=== PATIENT | female | born 1980 | race African-American/Black ===

== ENCOUNTER 2017-03-18 23:56 | Emergency (ER) | payer BC ==
[2017-03-19 00:25] LABS: URINE HCG POC HCG NEGATIVE (Negative)
[2017-03-19 00:53] LABS: ADD MAN DIFF? NO
[2017-03-19 00:57] LABS: BASO # 0.1 x10^3/uL (0.0-0.2); BASO % 1 % (0-3); EOS # 0.1 x10^3/uL (0.0-0.7); EOS % 2 % (0-3); HEMATOCRIT 28.7 % (36.0-47.0); HEMOGLOBIN 9.1 g/dL (12.0-15.5); LYMPH # 1.4 x10^3/uL (1.0-4.8); LYMPH % 22 % (24-48); MEAN CORPUSCULAR HEMOGLOBIN 23 pg (25-35); MEAN CORPUSCULAR HGB CONC 32 g/dL (31-37); MEAN CORPUSCULAR VOLUME 74 fL (79-100); MONO # 0.4 x10^3/uL (0.0-1.1); MONO % 7 % (0-9); NEUT # 4.4 x10^3uL (1.8-7.7); NEUT % 69 % (31-73); PLATELET COUNT 316 x10^3/uL (140-400); RED BLOOD COUNT 3.91 x10^6/uL (3.50-5.40); RED CELL DISTRIBUTION WIDTH 17.8 % (11.5-14.5); WHITE BLOOD COUNT 6.4 x10^3/uL (4.0-11.0)
[2017-03-19 00:58] LABS: BILIRUBIN,URINE NEGATIVE (NEG); CLARITY,URINE CLEAR; COLOR,URINE YELLOW; GLUCOSE,URINE NEGATIVE (NEG); NITRITE,URINE NEGATIVE (NEG); PH,URINE 7.5; PROTEIN,URINE NEGATIVE (NEG-TRACE); UROBILINOGEN,URINE 0.2 mg/dL (0.2 mg/dL)
[2017-03-19] MEDS ORDERED: CONTRAST GIVEN MC (01:00)
[2017-03-19] MEDS: IV NORMAL SALINE 1000ML BAG 1,000 ML IV (01:00)
[2017-03-19] MEDS: KETOROLAC 30 MG/ML INJ. IV (01:01)
[2017-03-19 01:04] LABS: BACTERIA,URINE FEW /HPF (0-FEW); RBC,URINE OCC /HPF (0-2)
[2017-03-19 01:05] LABS: SQUAMOUS EPITHELIAL CELL,UR FEW /LPF
[2017-03-19 01:09] LABS: ANION GAP 11 (6-14); BLOOD UREA NITROGEN 11 mg/dL (7-20); BUN/CREATININE RATIO 16 (6-20); CARBON DIOXIDE 26 mmol/L (21-32); CHLORIDE 104 mmol/L (98-107); CREATININE 0.7 mg/dL (0.6-1.0); GFR 113.3; GLUCOSE 99 mg/dL (70-99); POTASSIUM 3.5 mmol/L (3.5-5.1); SODIUM 141 mmol/L (136-145)
[2017-03-19 01:14] LABS: ALBUMIN/GLOBULIN RATIO 0.9 (1.0-1.7); ALK PHOS 98 U/L (46-116); ALT (SGPT) 14 U/L (14-59); AST (SGOT) 22 U/L (15-37); LIPASE 538 U/L (73-393); TOTAL BILIRUBIN 0.1 mg/dL (0.2-1.0); TOTAL PROTEIN 8.4 g/dL (6.4-8.2)
[2017-03-19] MEDS: IOHEXOL 300 MG/ML 100ML VIAL. IV (01:33)
[2017-03-19] MEDS: HYOSCYAMINE 0.125 MG TAB.RAPDIS PO (03:53)
[2017-03-19] MEDS: metroNIDAZOLE 500 MG TABLET PO (03:53)
[2017-03-19] MEDS: CIPROFLOXACIN HCL 250 MG TABLET. PO (03:54)
== END 2017-03-19 04:20 | disposition home or self-care (01) ==
LOC: ER 23:56
DX: K52.9 Noninfective gastroenteritis and colitis, unspecified (principal); R74.8 Abnormal levels of other serum enzymes; I10 Essential (primary) hypertension
CPT/HCPCS: 36415; 74177; 80053; 81001; 81025; 83690; 85025; 96361; 96374; 99285-25; J1885; J7030; Q9967